=== PATIENT | female | born 1975 | race Two or more races ===

== ENCOUNTER 2017-12-23 11:48 | Emergency (ER) | payer SELFPAY ==
[~2017-12-23] VITALS: Ht 154.9 cm; Wt 106.4 kg
[~2017-12-23 11:48] MED LIST: GLYB2.5T2 PO; MECL25TA3 PO; MEDR150D3 IM; PNV1TABL25 PO; RIZA5TAB PO; SUMA50TA3 PO
[2017-12-23 12:21] LABS: BILIRUBIN,URINE NEGATIVE (NEG); CLARITY,URINE CLEAR; COLOR,URINE YELLOW; NITRITE,URINE NEGATIVE (NEG); PROTEIN,URINE NEGATIVE (NEG-TRACE); UROBILINOGEN,URINE 0.2 mg/dL (0.2 mg/dL)
[2017-12-23] MEDS ORDERED: ACETAMINOPHEN 500 MG TABLET PO ONE (12:30)
[2017-12-23 12:33] LABS: BACTERIA,URINE FEW /HPF (0-FEW); SQUAMOUS EPITHELIAL CELL,UR MANY /LPF
[2017-12-23 12:40] VITALS: BP 132/55
[2017-12-23] MEDS ORDERED: PROC10TA57 PO (12:40)
--- NOTE | 2017-12-23 12:59 | PHYS DOC ---
Past Medical History Past Medical History: Migraines, Other Additional Past Medical Histor: vertigo, pre-diabetic Past Surgical History: Cholecystectomy, Other Additional Past Surgical Histo: d&c, gallbladder Alcohol Use: None Drug Use: None Adult General Chief Complaint Chief Complaint: ABDOMINAL PAIN IN HPI HPI Patient is a 42 year old female who presents to the emergency room with chief complaint of patient has multiple symptoms during the last 2 weeks of this . She is 9 weeks last menstrual. Was the first week of October. She is having no vaginal bleeding no dysuria she is having intermittent lower abdominal cramping sometimes feels cramping in her legs that comes and goes in addition she has had a dry cough and feels some sharp chest pain with coughing only no fever she felt warm the other night. She is also nauseous no vomiting Review of Systems Review of Systems Constitutional: Denies fever or chills [] Eyes: Denies change in visual acuity, redness, or eye pain [] Cardiovascular: No additional information not addressed in HPI [] GI: Musculoskeletal: ] Integument: Denies rash or skin lesions [] Neurologic: Denies headache, focal weakness or sensory changes [] Endocrine: Denies polyuria or polydipsia [] All other systems were reviewed and found to be within normal limits, except as documented in this note. Current Medications Current Medications Current Medications Medications (Trade) Dose Ordered Sig/Jarad Start Time Stop Time Status Last Admin Dose Admin Acetaminophen (Tylenol) 1,000 mg 1X ONCE 12/23/17 12:30 12/23/17 12:31 DC 12/23/17 12:18 1,000 MG Allergies Allergies Allergies Coded Allergies Type Severity Reaction Last Updated Verified No Known Drug Allergies 04/21/14 No Physical Exam Physical Exam Constitutional: Well developed, well nourished, no acute distress, non-toxic appearance. [] HENT: Normocephalic, atraumatic, bilateral external ears normal, oropharynx moist, no oral exudates, nose normal. [] Eyes: PERRLA, EOMI, conjunctiva normal, no discharge. [] Neck: Normal range of motion, no tenderness, supple, no stridor. [] Cardiovascular:Heart rate regular rhythm, no murmur [] Lungs & Thorax: Bilateral breath sounds clear to auscultation [] Abdomen: Bowel sounds normal, soft, no tenderness, no masses, no pulsatile masses. [] Skin: Warm, dry, no erythema, no rash. [] Extremities: No tenderness, no cyanosis, no clubbing, ROM intact, no edema. [] Neurologic: Alert and oriented X 3, normal motor function, normal sensory function, no focal deficits noted. [] Psychologic: Affect normal, judgement normal, mood normal. [] Current Patient Data Vital Signs Vital Signs Date Time Temp Pulse Resp B/P (MAP) Pulse Ox O2 Delivery O2 Flow Rate FiO2 12/23/17 11:52 97.9 71 14 143/82 (102) 98 Room Air 97.9 Lab Values Laboratory Tests Test 12/23/17 11:50 12/23/17 12:07 Urine Collection Type Unknown Urine Color Yellow Urine Clarity Clear Urine pH 6.0 Urine Specific [place] 1.015 Urine Protein Negative mg/dL (NEG-TRACE) Urine Glucose (UA) Negative mg/dL (NEG) Urine Ketones (Stick) Negative mg/dL (NEG) Urine Blood Negative (NEG) Urine Nitrite Negative (NEG) Urine Bilirubin Negative (NEG) Urine Urobilinogen Dipstick 0.2 mg/dL (0.2 mg/dL) Urine Leukocyte Esterase Negative (NEG) Urine RBC 1-2 /HPF (0-2) Urine WBC 1-4 /HPF (0-4) Urine Squamous Epithelial Cells Many /LPF Urine Bacteria Few /HPF (0-FEW) Urine Mucus Mod /LPF POC Urine HCG, Qualitative Hcg positive (Negative) EKG EKG [] Radiology/Procedures Radiology/Procedures [] Impressions: Bedside ultrasound performed by me does show IUP with heart rate of 130'S as well as a crown-rump length measures approximately 9 weeks 4 days Course & Med Decision Making Course & Med Decision Making Pertinent Labs and Imaging studies reviewed. (See chart for details) []Patient has multiple vague symptoms of suspect there may be a viral syndrome going on lungs are clear I don't think she needs any imaging IUP was confirmed by bedside ultrasound urinalysis was negative for infection patient was given a perception for Compazine for nausea she is instructed to follow-up with OBS normal for routine care. Dragon Disclaimer Dragon Disclaimer This electronic medical record was generated, in whole or in part, using a voice recognition dictation system. Departure Departure Impression: Primary Impression: Abdominal pain affecting Disposition: 01 HOME, SELF-CARE Condition: STABLE Referrals: KAYLYNN SANDOVAL MD UNKNOWN PCP NAME (PCP) Patient Instructions: Abdominal Pain During , [id number] Scripts Prochlorperazine Maleate (Compazine) 10 Mg Tablet 10 MG PO Q6HRS PRN for NAUSEA/VOMITING, #30 TAB Prov: LEATHA DIAMOND MD 12/23/17 LEATHA DIAMOND MD Dec 23, 2017 12:59
== END 2017-12-23 12:45 | disposition home or self-care (01) ==
LOC: ER 11:48
DX: O99.89 Other specified diseases and conditions complicating pregnancy, childbirth and the puerperium (principal); R10.30 Lower abdominal pain, unspecified; O99.355 Diseases of the nervous system complicating the puerperium; Z90.49 Acquired absence of other specified parts of digestive tract; Z3A.09 9 weeks gestation of pregnancy
CPT/HCPCS: 81001; 81025; 99283

== ENCOUNTER 2018-02-25 20:01 | Emergency (ER) | payer SELFPAY ==
[~2018-02-25] VITALS: Ht 154.9 cm; Wt 102.1 kg
[~2018-02-25 20:01] MED LIST changes: +PROC10TA57 PO
[2018-02-25 20:44] LABS: BILIRUBIN,URINE NEGATIVE (NEG); CLARITY,URINE CLEAR; COLOR,URINE YELLOW; NITRITE,URINE NEGATIVE (NEG); PROTEIN,URINE NEGATIVE (NEG-TRACE)
[2018-02-25 20:53] LABS: BACTERIA,URINE MANY /HPF (0-FEW); RBC,URINE OCC /HPF (0-2); SQUAMOUS EPITHELIAL CELL,UR MANY /LPF
[2018-02-25 21:00] VITALS: BP 153/62
[2018-02-25] MEDS ORDERED: ACETAMINOPHEN 500 MG TABLET PO ONE (21:15)
[2018-02-25] MEDS ORDERED: NITR100C62 PO (21:25)
--- NOTE | 2018-02-25 21:25 | PHYS DOC ---
Past Medical History Past Medical History: Migraines, Other Additional Past Medical Histor: vertigo, pre-diabetic Past Surgical History: Cholecystectomy, Other Additional Past Surgical Histo: d&c, gallbladder Alcohol Use: None Drug Use: None Adult General Chief Complaint Chief Complaint: ABDOMINAL PAIN IN [facility] HPI Patient is a 42 year old female who presents with pain to her upper right quadrant that extends down through her right side. The patient states that it started suddenly 1 hour ago. She states that the pain will clench new down her side and then stop and then it will happen again. She does not remember anything causing injury. The patient is . She has had a cholecystectomy in the past. She denies fever, nausea, pelvic pain, vaginal bleeding or discharge. Review of Systems Review of Systems Constitutional: Denies fever or chills [] Eyes: Denies change in visual acuity, redness, or eye pain [] HENT: Denies nasal congestion or sore throat [] Respiratory: Denies cough or shortness of breath [] Cardiovascular: No additional information not addressed in HPI [] GI: See history of present illness : Denies dysuria or hematuria [] Musculoskeletal: Denies back pain or joint pain [] Integument: Denies rash or skin lesions [] Neurologic: Denies headache, focal weakness or sensory changes [] Endocrine: Denies polyuria or polydipsia [] All other systems were reviewed and found to be within normal limits, except as documented in this note. Current Medications Current Medications Current Medications Medications (Trade) Dose Ordered Sig/[facility] Start Time Stop Time Status Last Admin Dose Admin Acetaminophen (Tylenol) 1,000 mg 1X ONCE 02/25/18 21:15 02/25/18 21:16 DC 02/25/18 21:11 1,000 MG Allergies Allergies Allergies Coded Allergies Type Severity Reaction Last Updated Verified No Known Drug Allergies 04/21/14 No Physical Exam Physical Exam Constitutional: Well developed, well nourished, no acute distress, non-toxic appearance. [] Cardiovascular:Heart rate regular rhythm, no murmur [] Lungs & Thorax: Bilateral breath sounds clear to auscultation [] Abdomen: Bowel sounds normal, soft, mild right upper quadrant tenderness that appears musculoskeletal in nature extending down the right side of the abdomen, no masses, no pulsatile masses. [] Skin: Warm, dry, no erythema, no rash. [] Back: No tenderness, no CVA tenderness. [] Extremities: No tenderness, no cyanosis, no clubbing, ROM intact, no edema. [] Neurologic: Alert and oriented X 3, normal motor function, normal sensory function, no focal deficits noted. [] Psychologic: Affect normal, judgement normal, mood normal. [] Current Patient Data Vital Signs Vital Signs Date Time Temp Pulse Resp B/P (MAP) Pulse Ox O2 Delivery O2 Flow Rate FiO2 02/25/18 20:05 97.7 80 19 138/63 (88) 98 Room Air 97.7 Lab Values Laboratory Tests Test 02/25/18 20:15 Urine Collection Type Unknown Urine Color Yellow Urine Clarity Clear Urine pH 6.0 Urine Specific [place] 1.025 Urine Protein Negative mg/dL (NEG-TRACE) Urine Glucose (UA) Negative mg/dL (NEG) Urine Ketones (Stick) Negative mg/dL (NEG) Urine Blood Negative (NEG) Urine Nitrite Negative (NEG) Urine Bilirubin Negative (NEG) Urine Urobilinogen Dipstick 1.0 mg/dL (0.2 mg/dL) Urine Leukocyte Esterase Trace (NEG) Urine RBC Occ /HPF (0-2) Urine WBC 1-4 /HPF (0-4) Urine Squamous Epithelial Cells Many /LPF Urine Bacteria Many /HPF (0-FEW) EKG EKG [] Radiology/Procedures Radiology/Procedures [] Course & Med Decision Making Course & Med Decision Making Pertinent Labs and Imaging studies reviewed. (See chart for details) []I explained to the patient that there is difficulty in doing any sort of imaging while . She does not have a gallbladder that could be causing right upper quadrant pain. Since this is been such a short onset and does seem musculoskeletal in nature it is probably safest to just observe the pain and see if it resolves. She was given a dose of Tylenol in the emergency department. She does have leukocytes in her urine and is being treated for a urinary tract infection. 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 She is to return immediately to the emergency department if having worsening abdominal pain. She is in agreement with this plan. Dragon Disclaimer Dragon Disclaimer This electronic medical record was generated, in whole or in part, using a voice recognition dictation system. Departure Departure Impression: Primary Impression: UTI in Additional Impression: Abdominal muscle strain Disposition: 01 HOME, SELF-CARE Condition: STABLE Referrals: UNKNOWN PCP NAME (PCP) Patient Instructions: Abdominal Pain During , - Urinary Tract Infection Additional Instructions: You may take Tylenol for pain. Rest for the next 24 hours. If you have increased pain, nausea, vomiting, fever, diarrhea, pelvic pain or vaginal bleeding return to the emergency department. Follow-up with your glaze supervisor for a recheck in 3 days. Scripts Nitrofurantoin Monohyd/M-Cryst (MACROBID 100 MG CAPSULE) 100 Mg Capsule 1 CAP PO BID for UTI, #14 CAP Prov: MONIK WESTFALL APRN 02/25/18 Problem Qualifiers MONIK WESTFALL APRN Feb 25, 2018 21:25
== END 2018-02-25 21:30 | disposition home or self-care (01) ==
LOC: ER 20:01
DX: O23.42 Unspecified infection of urinary tract in pregnancy, second trimester (principal); O9A.212 Injury, poisoning and certain other consequences of external causes complicating pregnancy, second trimester; S39.011A Strain of muscle, fascia and tendon of abdomen, initial encounter; Z3A.18 18 weeks gestation of pregnancy; G43.909 Migraine, unspecified, not intractable, without status migrainosus; Z90.49 Acquired absence of other specified parts of digestive tract; X58.XXXA Exposure to other specified factors, initial encounter; Y93.89 Activity, other specified; Y92.89 Other specified places as the place of occurrence of the external cause; Y99.8 Other external cause status
CPT/HCPCS: 81001; 87086; 99283

== ENCOUNTER 2018-05-22 18:28 | Observation (INO) | payer SELFPAY ==
[~2018-05-22] VITALS: Ht 154.9 cm; Wt 109.3 kg
[~2018-05-22 18:28] MED LIST changes: +NITR100C62 PO
[2018-05-22 19:44] LABS: BILIRUBIN,URINE NEGATIVE (NEG); CLARITY,URINE CLEAR; COLOR,URINE YELLOW; NITRITE,URINE NEGATIVE (NEG); PH,URINE 7.5; PROTEIN,URINE NEGATIVE (NEG-TRACE)
[2018-05-22] MEDS ORDERED: IV RINGERS,LACTATED 500ML 1,000 ML IV ONE (19:45)
[2018-05-22 19:48] LABS: BARBITURATES NEG (NEG); BENZODIAZEPINES NEG (NEG); CANNABINOIDS NEG (NEG); COCAINE NEG (NEG); METHADONE NEG (NEG); OPIATES NEG (NEG); PHENCYCLIDINE NEG (NEG)
[2018-05-22 19:49] LABS: AMPHETAMINE/METHAMPHETAMINE NEG (NEG)
[2018-05-22 19:56] LABS: RBC,URINE 0 /HPF (0-2)
[2018-05-22 19:57] LABS: BACTERIA,URINE FEW /HPF (0-FEW); SQUAMOUS EPITHELIAL CELL,UR MOD /LPF; WBC,URINE 0 /HPF (0-4)
[2018-05-22 20:03] LABS: AMNIO PT NEGATIVE
[2018-05-22] MEDS ORDERED: hydrOXYzine PAMOATE 25 MG CAPSULE PO PRN (21:00)
--- NOTE | 2018-05-22 21:03 | RAD ---
INDICATION: 30W LEAKING FLUID ROSE MARIE COMPARISON: None. TECHNIQUE: Grayscale and color ultrasound images uterus. FINDINGS: Intrauterine is identified. heartbeat is 140. Vertex presentation at time of exam. The cervix is obscured by the head. Placenta anterior wall. Amniotic fluid index 11.9. Limited evaluation of anatomy secondary to age and positioning. BPD 79 mm, 31 week 4 day Head circumflex conference 294 mm, 32 week 3 day Abdominal circumference 269 mm, 31 weeks 0 day Femur length 59 mm, 31 weeks 0 day Head circumference 200, hc/ac ratio 1.1 Estimated weight 1717 g. 50th percentile Estimated gestational age 31 weeks 4 days with estimated due date 07/20/2018. IMPRESSION: 1. Intrauterine is identified with positive heartbeat and estimated gestational age of 31 weeks and 4 days. The cervix is not visualized with an amniotic fluid index of 11.9. Electronically signed by: Ángel Galicia MD (05/22/2018 9:00 PM) [facility]
[2018-05-22] MEDS: IV RINGERS,LACTATED 1000ML 1,000 ML IV SCH ×2 (21:07→21:08)
[2018-05-22 21:31] LABS: BASO % 0 % (0-3); EOS # 0.2 x10^3/uL (0.0-0.7); EOS % 2 % (0-3); HEMATOCRIT 29.3 % (36.0-47.0); HEMOGLOBIN 9.6 g/dL (12.0-15.5); LYMPH # 2.2 x10^3/uL (1.0-4.8); LYMPH % 25 % (24-48); MEAN CORPUSCULAR HEMOGLOBIN 27 pg (25-35); MEAN CORPUSCULAR HGB CONC 33 g/dL (31-37); MEAN CORPUSCULAR VOLUME 82 fL (79-100); MONO # 0.5 x10^3/uL (0.0-1.1); MONO % 5 % (0-9); NEUT # 5.9 x10^3uL (1.8-7.7); NEUT % 68 % (31-73); PLATELET COUNT 337 x10^3/uL (140-400); RED BLOOD COUNT 3.56 x10^6/uL (3.50-5.40); RED CELL DISTRIBUTION WIDTH 16.4 % (11.5-14.5); WHITE BLOOD COUNT 8.8 x10^3/uL (4.0-11.0)
[2018-05-22 21:40] LABS: CALCIUM 8.7 mg/dL (8.5-10.1); CREATININE 0.5 mg/dL (0.6-1.0); POTASSIUM 3.8 mmol/L (3.5-5.1)
[2018-05-22 21:46] LABS: ALBUMIN 2.2 g/dL (3.4-5.0); ALBUMIN/GLOBULIN RATIO 0.5 (1.0-1.7); TOTAL BILIRUBIN 0.2 mg/dL (0.2-1.0); TOTAL PROTEIN 6.7 g/dL (6.4-8.2)
[2018-05-23 23:08] LABS: HEMOGLOBIN A1C 5.7 % (4.8-5.6)
== END 2018-05-22 22:59 | disposition home or self-care (01) ==
LOC: 3 SO LND 18:28
PROVIDERS: ADMIT Specialist; ATTEND Specialist
DX: O62.9 Abnormality of forces of labor, unspecified (principal); O26.893 Other specified pregnancy related conditions, third trimester; N89.8 Other specified noninflammatory disorders of vagina; Z3A.30 30 weeks gestation of pregnancy
CPT/HCPCS: 36415; 76815; 80053; 80307; 81001; 82962; 83036; 84112; 84443; 85025; G0378; G0379; Q0177; J7120

== ENCOUNTER 2018-12-07 15:45 | Emergency (ER) | payer SELFPAY ==
[~2018-12-07] VITALS: Ht 154.9 cm; Wt 105.2 kg
[2018-12-07 16:24] LABS: BILIRUBIN,URINE NEGATIVE (NEG); CLARITY,URINE CLEAR; COLOR,URINE YELLOW; NITRITE,URINE NEGATIVE (NEG); PROTEIN,URINE NEGATIVE (NEG-TRACE); UROBILINOGEN,URINE 0.2 mg/dL (0.2 mg/dL)
[2018-12-07 16:30] LABS: BASO % 0 % (0-3); EOS # 0.2 x10^3/uL (0.0-0.7); EOS % 2 % (0-3); HEMATOCRIT 34.9 % (36.0-47.0); LYMPH # 2.2 x10^3/uL (1.0-4.8); LYMPH % 18 % (24-48); MEAN CORPUSCULAR HEMOGLOBIN 23 pg (25-35); MEAN CORPUSCULAR HGB CONC 32 g/dL (31-37); MEAN CORPUSCULAR VOLUME 72 fL (79-100); MONO # 0.3 x10^3/uL (0.0-1.1); MONO % 3 % (0-9); NEUT # 9.4 x10^3/uL (1.8-7.7); NEUT % 77 % (31-73); PLATELET COUNT 439 x10^3/uL (140-400); RED BLOOD COUNT 4.83 x10^6/uL (3.50-5.40); RED CELL DISTRIBUTION WIDTH 19.1 % (11.5-14.5); WHITE BLOOD COUNT 12.2 x10^3/uL (4.0-11.0)
[2018-12-07] MEDS ORDERED: ONDANSETRON PF 4 MG/2 ML VIAL. IV ONE (16:30)
[2018-12-07] MEDS ORDERED: IV NORMAL SALINE 1000ML BAG 1,000 ML IV ONE (16:30)
[2018-12-07] MEDS ORDERED: fentaNYL PF VIAL 100 MCG/2 ML VIAL IV ONE (16:30)
[2018-12-07 16:32] LABS: BACTERIA,URINE MANY /HPF (0-FEW); RBC,URINE RARE /HPF (0-2); SQUAMOUS EPITHELIAL CELL,UR MANY /LPF; WBC,URINE RARE /HPF (0-4)
[2018-12-07 16:43] LABS: CALCIUM 8.5 mg/dL (8.5-10.1); CREATININE 0.8 mg/dL (0.6-1.0); POTASSIUM 3.9 mmol/L (3.5-5.1)
[2018-12-07 16:48] LABS: ALBUMIN 3.7 g/dL (3.4-5.0); ALBUMIN/GLOBULIN RATIO 0.8 (1.0-1.7); MAGNESIUM 2.2 mg/dL (1.8-2.4); TOTAL BILIRUBIN 0.4 mg/dL (0.2-1.0); TOTAL PROTEIN 8.5 g/dL (6.4-8.2)
--- NOTE | 2018-12-07 17:11 | PHYS DOC ---
Past Medical History Past Medical History: Migraines, Other Additional Past Medical Histor: vertigo, pre-diabetic Past Surgical History: Cholecystectomy, Other Additional Past Surgical Histo: d&c, gallbladder Alcohol Use: None Drug Use: None Adult General Chief Complaint Chief Complaint: ABDOMINAL PAIN HPI HPI Patient is a 43 year old female who presents to the ER with complaints of abdominal pain, nausea, and diarrhea since yesterday. She states the pain is epigastric and wraps around to her back. Pt also reports RLQ abd pain and suprapubic TTP. She denies any dysuria, increased urinary frequency, or hematuria. Pt reports she has had 3 episodes of diarrhea today but denies any vomiting. She currently rates her pain a 7/10 on the pain scale. She denies any alleviating factors. Review of Systems Review of Systems Constitutional: Denies fever or chills [] Eyes: Denies redness, or eye pain [] HENT: Denies nasal congestion or sore throat [] Respiratory: Denies cough or shortness of breath [] Cardiovascular: No additional information not addressed in HPI [] GI: see HPI : Denies dysuria or hematuria [] Musculoskeletal: Denies joint pain [] Integument: Denies rash or skin lesions [] Neurologic: Denies headache, focal weakness or sensory changes [] Endocrine: Denies polyuria or polydipsia [] Complete systems were reviewed and found to be within normal limits, except as documented in this note. Current Medications Current Medications Current Medications Medications (Trade) Dose Ordered Sig/Jarad Start Time Stop Time Status Last Admin Dose Admin Fentanyl Citrate (Fentanyl 2ml Vial) 50 mcg 1X ONCE 12/07/18 16:30 12/07/18 16:31 DC 12/07/18 17:13 50 MCG Info (CONTRAST GIVEN -- Rx MONITORING) 1 each PRN DAILY PRN 12/07/18 17:30 12/09/18 17:29 Iohexol (Omnipaque 300 Mg/ml) 75 ml 1X ONCE 12/07/18 17:30 12/07/18 17:31 DC 12/07/18 17:30 75 ML Ondansetron HCl (Zofran) 4 mg 1X ONCE 12/07/18 16:30 12/07/18 16:31 DC 12/07/18 17:12 4 MG Sodium Chloride 1,000 ml @ 1,000 mls/hr 1X ONCE 12/07/18 16:30 12/07/18 17:29 DC 12/07/18 17:12 1,000 MLS/HR Allergies Allergies Allergies Coded Allergies Type Severity Reaction Last Updated Verified No Known Drug Allergies 04/21/14 No Physical Exam Physical Exam Constitutional: Well developed, well nourished, no acute distress, non-toxic appearance, obese. [] HENT: Normocephalic, atraumatic, bilateral external ears normal, nose normal. [] Eyes: PERRLA, EOMI, conjunctiva normal, no discharge. [] Neck: Normal range of motion, no stridor. [] Cardiovascular:Heart rate regular rhythm, no murmur [] Lungs & Thorax: Bilateral breath sounds clear to auscultation [] Abdomen: Bowel sounds normal, soft, RLQ TTP, epigastric TTP, no rebound tenderness, no masses, no pulsatile masses. [] Skin: Warm, dry, no erythema, no rash. [] Back: No tenderness, no CVA tenderness. [] Extremities: No cyanosis, ROM intact, no edema. [] Neurologic: Alert and oriented X 3, no focal deficits noted. [] Psychologic: Affect normal, judgement normal, mood normal. [] Current Patient Data Vital Signs Vital Signs Date Time Temp Pulse Resp B/P (MAP) Pulse Ox O2 Delivery O2 Flow Rate FiO2 12/07/18 17:13 16 99 Room Air 12/07/18 16:20 97.7 84 131/67 (88) 97.7 Lab Values Laboratory Tests Test 12/07/18 15:50 12/07/18 16:16 Urine Collection Type Unknown Urine Color Yellow Urine Clarity Clear Urine pH 5.0 Urine Specific [place] 1.025 Urine Protein Negative mg/dL (NEG-TRACE) Urine Glucose (UA) Negative mg/dL (NEG) Urine Ketones (Stick) Negative mg/dL (NEG) Urine Blood Moderate (NEG) Urine Nitrite Negative (NEG) Urine Bilirubin Negative (NEG) Urine Urobilinogen Dipstick 0.2 mg/dL (0.2 mg/dL) Urine Leukocyte Esterase Negative (NEG) Urine RBC Rare /HPF (0-2) Urine WBC Rare /HPF (0-4) Urine Squamous Epithelial Cells Many /LPF Urine Bacteria Many /HPF (0-FEW) Urine Mucus Marked /LPF Urine Test Negative (NEG) White Blood Count 12.2 x10^3/uL (4.0-11.0) H Red Blood Count 4.83 x10^6/uL (3.50-5.40) Hemoglobin 11.0 g/dL (12.0-15.5) L Hematocrit 34.9 % (36.0-47.0) L Mean Corpuscular Volume 72 fL (79-100) L Mean Corpuscular Hemoglobin 23 pg (25-35) L Mean Corpuscular Hemoglobin Concent 32 g/dL (31-37) Red Cell Distribution Width 19.1 % (11.5-14.5) H Platelet Count 439 x10^3/uL (140-400) H Neutrophils (%) (Auto) 77 % (31-73) H Lymphocytes (%) (Auto) 18 % (24-48) L Monocytes (%) (Auto) 3 % (0-9) Eosinophils (%) (Auto) 2 % (0-3) Basophils (%) (Auto) 0 % (0-3) Neutrophils # (Auto) 9.4 x10^3/uL (1.8-7.7) H Lymphocytes # (Auto) 2.2 x10^3/uL (1.0-4.8) Monocytes # (Auto) 0.3 x10^3/uL (0.0-1.1) Eosinophils # (Auto) 0.2 x10^3/uL (0.0-0.7) Basophils # (Auto) 0.0 x10^3/uL (0.0-0.2) Platelet Estimate Increased (ADEQUATE) Hypochromasia Mod Sodium Level 140 mmol/L (136-145) Potassium Level 3.9 mmol/L (3.5-5.1) Chloride Level 107 mmol/L (98-107) Carbon Dioxide Level 22 mmol/L (21-32) Anion Gap 11 (6-14) Blood Urea Nitrogen 16 mg/dL (7-20) Creatinine 0.8 mg/dL (0.6-1.0) Estimated GFR (Cockcroft-Gault) 79.0 BUN/Creatinine Ratio 20 (6-20) Glucose Level 105 mg/dL (70-99) H Calcium Level 8.5 mg/dL (8.5-10.1) Magnesium Level 2.2 mg/dL (1.8-2.4) Total Bilirubin 0.4 mg/dL (0.2-1.0) Aspartate Amino Transferase (AST) 14 U/L (15-37) L Alanine Aminotransferase (ALT) 15 U/L (14-59) Alkaline Phosphatase 80 U/L (46-116) Total Protein 8.5 g/dL (6.4-8.2) H Albumin 3.7 g/dL (3.4-5.0) Albumin/Globulin Ratio 0.8 (1.0-1.7) L Lipase 143 U/L (73-393) Laboratory Tests 12/07/18 16:16 Laboratory Tests 12/07/18 16:16 EKG EKG [] Radiology/Procedures Radiology/Procedures PROCEDURE: CT ABD PELV W/ IV CONTRST ONLY CT scan abdomen and pelvis with contrast 12/07/2018 CLINICAL HISTORY: Abdominal pain. TECHNIQUE: After the intravenous administration of 75 cc of Omnipaque 300 only, contiguous, 5 mm axial sections were obtained to the abdomen and pelvis. One or more of the following individualized dose reduction techniques were utilized for this study: 1. Automated exposure control. 2. Adjustment of the mA and/or kV according to patient size. 3. Use of iterative reconstruction technique. FINDINGS: Comparison is made to ultrasound of the right quadrant abdomen dated 06/23/2015. Images through the lung bases are within normal limits. The liver, spleen, pancreas, adrenal glands and kidneys are within normal limits. The abdominal aorta tapers normally. Surgical clips are seen within the gallbladder fossa consistent with a cholecystectomy. No free fluid or free air is within the abdomen. Mildly dilated fluid-filled small bowel loops are seen within the abdomen without definite evidence of bowel obstruction. Air and stool seen throughout the colon. The appendix is well-visualized and is within normal limits. Images of the pelvis demonstrate the urinary bladder is distended with urine. No adnexal mass is seen. No free fluid is noted. Minimal S-shaped curvature of the thoracolumbar spine is seen. Degenerative changes are seen involving the lower thoracic and throughout the lumbar spine. IMPRESSION: Mildly dilated fluid-filled small bowel loops are seen throughout the abdomen without definite evidence of bowel obstruction. Course & Med Decision Making Course & Med Decision Making Pertinent Labs and Imaging studies reviewed. (See chart for details) dx: nausea and diarrhea CBC: WBC 12.2, Hgb 11.5 Hct 34.9; CMP glucose 105 otherwise unremarkable. UA unremarkable. Hgb/Hct is improved from last visit CT abd/pel is negative for acute findings. PT was given 1L NS, 4 mg zofran, and 50 mcg of fentanyl in the ER. VSS Pt requests more pain medication before d/c home. 4 mg of morphine ordered. Results discussed with patient. Prescription for zofran. Recommend clear fluids x24 hours then advance as t olerated starting with bland foods. Follow up with your PCP in 1-2 days. Return to ER if sx worsen, pain increases, or fever develops. Pt verbalized an understanding of home care, medications, follow-up, and return to ED instructions and was in agreement with the plan of care. Dragon Disclaimer Dragon Disclaimer This electronic medical record was generated, in whole or in part, using a voice recognition dictation system. Departure Departure Impression: Primary Impression: Abdominal pain Additional Impression: Diarrhea Disposition: HOME, SELF-CARE Condition: STABLE Referrals: UNKNOWN PCP NAME (PCP) Patient Instructions: Abdominal Pain (Nonspecific), Diarrhea, [id number], Diet for Diarrhea, Adult Additional Instructions: Fill prescriptions and use them as directed. Recommend clear fluids for the next 24 hours. Then you may advance to bland foods such as bananas, rice, applesauce, and dry toast. Follow-up with your primary care doctor in the next 1-2 days. Return to the emergency room if your symptoms worsen. Scripts Ondansetron (ONDANSETRON ODT) 4 Mg Tab.rapdis 1 TAB PO PRN Q6-8HRS PRN for NAUSEA/VOMITING for 4 Days, #16 TAB 0 Refills Prov: IAIN RODRIGUEZ APRN 12/07/18 Problem Qualifiers Primary Impression: Abdominal pain Abdominal location: right lower quadrant Qualified Codes: R10.31 - Right lower quadrant pain Additional Impression: Diarrhea Diarrhea type: unspecified type Qualified Codes: R19.7 - Diarrhea, unspecified IAIN RODRIGUEZ [employer]NIFE [employer]ISHER Dec 07, 2018 17:11
[2018-12-07 17:16] LABS: HYPOCHROMIA MOD; PLT ESTIMATE INCREASED (ADEQUATE)
[2018-12-07] MEDS ORDERED: IOHEXOL 300 MG/ML 100ML VIAL. IV ONE (17:30)
[2018-12-07] MEDS ORDERED: CONTRAST GIVEN. MC PRN (17:30)
[2018-12-07 17:39] LABS: U PREG PATIENT NEGATIVE (NEG)
--- NOTE | 2018-12-07 18:23 | RAD ---
CT scan abdomen and pelvis with contrast 12/07/2018 CLINICAL HISTORY: Abdominal pain. TECHNIQUE: After the intravenous administration of 75 cc of Omnipaque 300 only, contiguous, 5 mm axial sections were obtained to the abdomen and pelvis. One or more of the following individualized dose reduction techniques were utilized for this study: 1. Automated exposure control. 2. Adjustment of the mA and/or kV according to patient size. 3. Use of iterative reconstruction technique. FINDINGS: Comparison is made to ultrasound of the right quadrant abdomen dated 06/23/2015. Images through the lung bases are within normal limits. The liver, spleen, pancreas, adrenal glands and kidneys are within normal limits. The abdominal aorta tapers normally. Surgical clips are seen within the gallbladder fossa consistent with a cholecystectomy. No free fluid or free air is within the abdomen. Mildly dilated fluid-filled small bowel loops are seen within the abdomen without definite evidence of bowel obstruction. Air and stool seen throughout the colon. The appendix is well-visualized and is within normal limits. Images of the pelvis demonstrate the urinary bladder is distended with urine. No adnexal mass is seen. No free fluid is noted. Minimal S-shaped curvature of the thoracolumbar spine is seen. Degenerative changes are seen involving the lower thoracic and throughout the lumbar spine. IMPRESSION: Mildly dilated fluid-filled small bowel loops are seen throughout the abdomen without definite evidence of bowel obstruction. Electronically signed by: Lance Jennings MD (12/07/2018 6:21 PM) [facility]
[2018-12-07] MEDS ORDERED: ONDA4TAB12 PO (18:57)
[2018-12-07] MEDS ORDERED: MORPHINE SULFATE 4 MG/ML VIAL. IV ONE (19:00)
[2018-12-07 19:15] VITALS: BP 115/72
== END 2018-12-07 19:18 | disposition home or self-care (01) ==
LOC: ER 15:45
DX: R10.31 Right lower quadrant pain (principal); R19.7 Diarrhea, unspecified; G43.909 Migraine, unspecified, not intractable, without status migrainosus; Z90.49 Acquired absence of other specified parts of digestive tract
CPT/HCPCS: 36415; 74177; 80053; 81001; 81025; 83690; 83735; 85025; 87086; 96361; 96374; 96375; 99285; J2270; J2405; J3010; J7030; Q9967

== ENCOUNTER 2021-02-19 15:52 | Emergency (ER) | payer SELFPAY ==
[~2021-02-19] VITALS: Ht 154.9 cm; Wt 108.4 kg
[~2021-02-19 15:52] MED LIST changes: +MECL-75 PO; -MECL25TA3 PO; +ONDA4TAB12 PO
[2021-02-19 17:12] VITALS: BP 137/45
[2021-02-19 17:34] LABS: BILIRUBIN,URINE NEGATIVE (NEG); CLARITY,URINE CLEAR; COLOR,URINE YELLOW; NITRITE,URINE NEGATIVE (NEG); PH,URINE 5.5 (<5.0-8.0); PROTEIN,URINE NEGATIVE (NEG-TRACE); UROBILINOGEN,URINE 0.2 mg/dL (0.2 mg/dL)
[2021-02-19 17:36] LABS: U PREG PATIENT NEGATIVE (NEG)
[2021-02-19 17:41] LABS: BACTERIA,URINE FEW /HPF (0-FEW); RBC,URINE 0 /HPF (0-2)
== END 2021-02-19 19:10 | disposition left against medical advice (07) ==
LOC: ER 15:52
DX: R10.30 Lower abdominal pain, unspecified (principal); Z53.21 Procedure and treatment not carried out due to patient leaving prior to being seen by health care provider
CPT/HCPCS: 81001; 81025